=== PATIENT | female | born 1950 | race Two or more races ===

== ENCOUNTER 2022-01-14 11:43 | Outpatient (CLI) | payer OTHER | END 2022-01-14 11:56 | disposition home or self-care (01) | LOC: MAMO-SONO 11:43 | PROVIDERS: ATTEND Obstetrics & Gynecology | DX: N60.11 Diffuse cystic mastopathy of right breast (principal) ==

== ENCOUNTER 2023-11-10 11:45 | Outpatient (CLI) | payer OTHER | END 2023-11-10 12:00 | disposition home or self-care (01) | LOC: MAMO-SONO 11:45 | DX: N64.4 Mastodynia (principal); Z12.31 Encounter for screening mammogram for malignant neoplasm of breast ==